=== PATIENT | male | born 2000 | race Caucasian/White ===

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

== ENCOUNTER 2022-09-16 13:42 | Outpatient (REF) | payer MEDICAID, SELFPAY ==
[2022-09-17 13:43] LABS: Chlamydia Result Negative (Negative); GC Result Negative (Negative)
== END 2022-09-16 13:43 | disposition home or self-care (01) ==
LOC: LBN 13:42
PROVIDERS: Referring Provider Student in an Organized Health Care Education/Training Program; Visit Provider Student in an Organized Health Care Education/Training Program
DX: Z11.3 Encounter for screening for infections with a predominantly sexual mode of transmission (principal)
CPT/HCPCS: 87491; 87591

== ENCOUNTER 2023-10-16 14:14 | Outpatient (REF) | payer MEDICAID, SELFPAY ==
[2023-10-18 13:25] LABS: Chlamydia Result Negative (Negative); GC Result Negative (Negative)
== END 2023-10-16 14:15 | disposition home or self-care (01) ==
LOC: LBN 14:14
PROVIDERS: Visit Provider Student in an Organized Health Care Education/Training Program
DX: Z11.3 Encounter for screening for infections with a predominantly sexual mode of transmission (principal)
CPT/HCPCS: 87491; 87591

== ENCOUNTER → 2025-02-19 13:35 | Outpatient (CLI) | payer MEDICAID, SELFPAY ==
--- NOTE | 2025-02-19 13:30 | DI.RAD_ITS ---
Exam(s) XR KNEE LT 3V AP,LAT,JAYDEN EXAM: XR KNEE LT 3V AP,LAT,JAYDEN CLINICAL HISTORY: r/o fracture, lt knee pain, M25.562. TECHNIQUE: 2D digital imaging was performed. Three views. COMPARISON: CR KNEES BILAT AP LATERALS from 05/29/2012 FINDINGS: BONES: No acute fracture is present. No bony destructive lesion is seen. JOINTS: The knee is normally aligned. No joint effusion is seen. SOFT TISSUE: Normal. IMPRESSION: Normal radiographs of the left knee. DATA REPOSITORY: RADIATION DOSE DELIVERED:
== END ==
LOC: DI 13:36
PROVIDERS: Visit Provider Pediatrics
DX: M25.562 Pain in left knee (principal)
CPT/HCPCS: 73562